=== PATIENT | female | born 1980 | race Caucasian/White ===

== ENCOUNTER 2023-10-15 10:44 | Emergency (ER) | payer MEDICAID, SELFPAY ==
--- NOTE | ~2023-10-15 | CT_ITS ---
EXAMINATION: CT HEAD WITHOUT CONTRAST CLINICAL INFORMATION: Headache. COMPARISON: None available. TECHNIQUE: Contiguous axial imaging was performed from the skull base to vertex without intravenous administration of contrast. This CT examination was performed using dose optimization techniques as appropriate, variously including the following: *Automated exposure control *Adjustment of mA and/or kV according to patient size (this includes techniques or standardized protocols for targeted exams where dose is matched to indication/reason for exam; i.e. extremities or head) *Use of iterative reconstruction technique DLP: 642 mGy-cm FINDINGS: There is no evidence of acute intracranial hemorrhage or territorial infarction. No mass effect or midline shift is seen. Encarnacion to white matter differentiation is preserved. No extra-axial fluid collections are identified. No hydrocephalus. The osseous structures and soft tissues are intact. The mastoid air cells are clear. Mucous retention cysts in the right maxillary sinus. CT/CT head/brain wo IV con IMPRESSION: No acute intracranial pathology.
[2023-10-15 10:59] VITALS: BP 157/111; PULSE 76; RESP 18; TEMP 36.6; O2SAT 98; BMI 26.0
--- NOTE | 2023-10-15 11:04 | ECG_ITS ---
Test Reason : chest discomfort Blood Pressure : / mmHG Vent. Rate : 070 BPM Atrial Rate : 070 BPM P-R Int : 162 ms QRS Dur : 072 ms QT Int : 424 ms P-R-T Axes : 060 041 003 degrees QTc Int : 457 ms Normal sinus rhythm Normal ECG No previous ECGs available Referred By: Generic ED Physician Electronically Signed By:TREVER SPENCER MD
[2023-10-15 11:28] LABS: MANUAL DIFF FLAG NO
[2023-10-15 11:29] LABS: Basophils Absolute Auto 0.1 X10*3/uL (0.0-0.2); Basophils Percent Auto 1.4 % (0-2); Eosinophils Absolute Auto 0.3 X10*3/uL (0.0-0.4); Eosinophils Percent Auto 3.9 % (0-4); Hematocrit 45.7 % (37.0-47.0); Hemoglobin 15.4 g/dl (12.0-16.0); Imm Gran Abs Auto 0.01 X10*3/uL (0.00-0.03); Imm Gran Pct Auto 0.2 % (0.0-0.4); Lymphocytes Absolute Auto 1.9 X10*3/uL (1.2-4.9); Lymphocytes Percent Auto 30.5 % (20-40); Mean Corpuscular HGB Conc 33.7 g/dl (31.0-35.0); Mean Corpuscular Hemoglobin 30.3 pg (27.0-33.0); Mean Corpuscular Volume 89.8 fL (80.0-98.0); Mean Platelet Volume 10.7 fL (9.4-12.3); Monocytes Absolute Auto 0.5 X10*3/uL (0.1-1.2); Monocytes Percent Auto 8.5 % (2-11); Neutrophils Absolute Auto 3.5 x10*3/uL (2.0-8.3); Neutrophils Percent Auto 55.5 % (45-73); Platelet Count 294 X10*3/uL (160-400); Red Blood Count 5.09 X10*6/uL (4.20-5.50); Red Cell Distribution Width 13.8 % (11.0-16.0); White Blood Count 6.4 X10*3/uL (4.8-10.8)
[2023-10-15 11:54] LABS: Alanine Aminotransferase 16 U/L (0-31); Albumin Level 4.3 g/dL (3.5-5.0); Alkaline Phosphatase 67 U/L (39-117); Anion Gap 10 (12-20); Aspartate Amino Transferase 14 U/L (5-31); Bilirubin Total 0.4 mg/dL (0.0-1.0); Blood Urea Nitrogen 11 mg/dL (9-16); Calcium 9.3 mg/dL (8.4-10.2); Carbon Dioxide 27 mmol/L (22-29); Chloride 105 mmol/L (96-108); Creatinine Clr Calc Pharmacy 91.5; Estimated Glomerular Filt Rate > 60; Glucose Random 88 mg/dL (60-115); Magnesium 2.4 mg/dL (1.6-2.6); Potassium 3.7 mmol/L (3.3-5.1); Sodium 138 mmol/L (135-145); Total Protein 7.8 g/dL (6.5-8.0)
[2023-10-15 12:01] LABS: Troponin-I High Sensitivity < 2.7 ng/L (<3.5-17.0)
[2023-10-15 12:07] LABS: Acetaminophen LAB < 3 mcg/mL (<30); Salicylate < 5.0 mg/dL (15-30)
--- NOTE | 2023-10-15 15:25 | ED_ITS ---
HPI - Headache General Chief Complaint: Headache Stated Complaint: Migraine X 2 Days Neck Pain Time Seen by Provider: 10/15/23 18:16 Related Data Allergies Allergy/AdvReac Type Severity Reaction Status Date / Time No Known Allergies Allergy Verified 10/15/23 11:03 [facility] Social History Social History Advance Directives: No Advance Directives Information Provided: No Do you have a plan to hurt others: No Plan Physical Exam 2 Vital Signs: Vital Signs: Last Vital Signs Temp 98.0 F 10/15/23 15:26 Pulse 69 10/15/23 15:26 Resp 18 10/15/23 15:26 BP 167/109 H 10/15/23 15:26 Pulse Ox 100 10/15/23 15:26 O2 Del Method Room Air 10/15/23 15:26 BMI result Body Mass Index 26.0 Course Course Course Narrative: This is an RME: Additional HPI, ROS, PE not included below will be deferred to primary provider. 43-year-old female presents with 2 days of headache, taking Excedrin 1 pill every 3-4 hours, she headache is intermittent, comes back, intermittent nature. Patient reports 2 weeks ago she was having sinus type symptoms now she reports she just feels mucusy . Took her moms amlodipine. Patient is hypertensive in triage. Medical Decision Making Lab Data 10/15/23 11:21 10/15/23 11:21 Labs: Lab Results 10/15/23 Range/Units 11:21 WBC 6.4 (4.8-10.8) X10*3/uL RBC 5.09 (4.20-5.50) X10*6/uL Hgb 15.4 (12.0-16.0) g/dl Hct 45.7 (37.0-47.0) % MCV 89.8 (80.0-98.0) fL MCH 30.3 (27.0-33.0) pg MCHC 33.7 (31.0-35.0) g/dl RDW 13.8 (11.0-16.0) % Plt Count 294 (160-400) X10*3/uL MPV 10.7 (9.4-12.3) fL Immature Gran % (Auto) 0.2 (0.0-0.4) % Neut % (Auto) 55.5 (45-73) % Lymph % (Auto) 30.5 (20-40) % [place] % (Auto) 8.5 (2-11) % Eos % (Auto) 3.9 (0-4) % Baso % (Auto) 1.4 (0-2) % Lymph # (Auto) 1.9 (1.2-4.9) X10*3/uL [place] # (Auto) 0.5 (0.1-1.2) X10*3/uL Eos # (Auto) 0.3 (0.0-0.4) X10*3/uL Baso # (Auto) 0.1 (0.0-0.2) X10*3/uL Abs Immat Gran (auto) 0.01 (0.00-0.03) X10*3/uL Absolute Neuts (auto) 3.5 (2.0-8.3) x10*3/uL Absolute Nucleated RBC 0.000 (0.0-0.012) X10*3/uL Nucleated RBC % (auto) 0.0 (0.0-0.2) /100WBC ESR 3 (0-20) MM/HR Sodium 138 (135-145) mmol/L Potassium 3.7 (3.3-5.1) mmol/L Chloride 105 (96-108) mmol/L Carbon Dioxide 27 (22-29) mmol/L Anion Gap 10 L (12-20) BUN 11 (9-16) mg/dL Creatinine 0.85 (0.5-1.4) mg/dL Estim Creat Clear Calc 91.5 Estimated GFR > 60 Random Glucose 88 (60-115) mg/dL Calcium 9.3 (8.4-10.2) mg/dL Magnesium 2.4 (1.6-2.6) mg/dL Total Bilirubin 0.4 (0.0-1.0) mg/dL AST 14 (5-31) U/L ALT 16 (0-31) U/L Alkaline Phosphatase 67 (39-117) U/L Troponin I High Sens < 2.7 (<3.5-17.0) ng/L C-Reactive Protein 0.20 (< or = 0.50) mg/dL Total Protein 7.8 (6.5-8.0) g/dL Albumin 4.3 (3.5-5.0) g/dL Salicylates < 5.0 L (15-30) mg/dL Acetaminophen < 3 (<30) mcg/mL Discharge Plan Discharge Clinical Impression: Eloped from emergency department Patient Disposition: Left W/O Completing Treatment Discharge Date/Time: 10/15/23 18:53
[2023-10-15 15:26] VITALS: BP 167/109; PULSE 69; RESP 18; TEMP 36.7; O2SAT 100
[2023-10-15 16:24] LABS: Erythrocyte Sedimentation Rate 3 MM/HR (0-20)
== END 2023-10-15 18:53 | disposition left against medical advice (07) ==
LOC: HO.ED 18:52
PROVIDERS: Physician Assistant; Physician Assistant Medical; Emergency Provider Emergency Medicine; PCP Internal Medicine
DX: G43.909 Migraine, unspecified, not intractable, without status migrainosus (principal); M54.2 Cervicalgia
CPT/HCPCS: 36415; 70450; 80053; 80143; 80179; 83735; 84484; 85025; 85652; 86140; 93005; 99283; 99284

== ENCOUNTER → 2023-10-15 11:04 | Outpatient (BNV) | payer MEDICAID, SELFPAY | PROVIDERS: Emergency Provider Emergency Medicine; PCP Internal Medicine; Visit Provider Internal Medicine Cardiovascular Disease | DX: R07.9 Chest pain, unspecified (principal) | CPT/HCPCS: 93010 ==

== ENCOUNTER 2025-05-17 10:28 | Inpatient (IN) | payer OTHER, SELFPAY ==
[2025-05-17] VITALS (11 sets, daily range): BP systolic 130–183; BP diastolic 82–113; PULSE 16–82; RESP 16; TEMP 36.3–36.8; O2SAT 95–99; BMI 24.3
--- NOTE | ~2025-05-17 | CT_ITS ---
EXAMINATION: CT ANGIOGRAM HEAD AND NECK CLINICAL INFORMATION: Headache, neck pain, left-sided facial numbness, 44-year-old female. COMPARISON: No prior CTA available. CT head dated 10/15/2023. TECHNIQUE: Noncontrast axial imaging of the head was performed. This was followed by test bolus sequences and head and neck intravenous bolus administration 70 mL of Omnipaque 350. Helical imaging was performed in the axial plane from the aortic arch to the skull vertex. The data was processed at the aeronautical engineering technologist's workstation for generation of MIP sequences. Angled MIPs and volume rendered reformatted images were also generated at an offline 3D workstation. Stenoses are assessed in accordance with NASCET criteria unless otherwise indicated. This CT examination was performed using dose optimization techniques as appropriate, variously including the following: *Automated exposure control *Adjustment of mA and/or kV according to patient size (this includes techniques or standardized protocols for targeted exams where dose is matched to indication/reason for exam; i.e. extremities or head) *Use of iterative reconstruction technique FINDINGS: NONCONTRAST HEAD CT: There is no evidence of intracranial hemorrhage or extra-axial fluid collection. There is no mass effect, or edema. No CT evidence of acute territorial infarct. Ventricles, sulci, and cisterns are normal in size and configuration for patient age. No hydrocephalus. No midline shift. No significant white matter abnormalities. Normal-appearing pituitary. Globes and orbital contents image normally. No extracranial soft tissue abnormalities. The paranasal sinuses, mastoid air cells, and tympanic cavities are normally aerated. No suspicious bony abnormalities. NECK CTA: -AORTIC ARCH: Normal in caliber. No significant atheromatous calcification. Three-vessel branching pattern. -GREAT VESSEL ORIGINS: Widely patent. No stenosis. -RIGHT COMMON CAROTID ARTERY: Normal in course and caliber to the level of the bifurcation. -CERVICAL RIGHT INTERNAL CAROTID ARTERY: Normal opacification without focal stenosis or occlusion. -LEFT COMMON CAROTID ARTERY: Normal in course and caliber to the level of the bifurcation. -CERVICAL LEFT INTERNAL CAROTID ARTERY: Normal opacification without focal stenosis or occlusion. -CERVICAL RIGHT VERTEBRAL ARTERY: Codominant. Normal origin. Normal in course and caliber into the skull base. -CERVICAL LEFT VERTEBRAL ARTERY: Codominant. Normal origin. Normal in course and caliber into the skull base. OTHER, SOFT TISSUES: -No lymphadenopathy or mass. No abnormal fluid collection or soft tissue swelling. -Normal thyroid. -Imaged superior mediastinal structures normal. -Imaged lung apices clear. CTA OF THE BRAIN: -INTRACRANIAL INTERNAL CAROTID ARTERIES: No focal stenosis or occlusion. Ophthalmic artery origins are normal. -RIGHT ANTERIOR CEREBRAL ARTERY: Normal A1 segment. Normal arborization of the distal segments. -LEFT ANTERIOR CEREBRAL ARTERY: Normal A1 segment. Normal arborization of the distal segments. -ANTERIOR COMMUNICATING ARTERY: Normal. -RIGHT MIDDLE CEREBRAL ARTERY: Normal M1 segment of the MCA without focal stenosis or occlusion. Normal bifurcation. Normal arborization of the distal segments. -LEFT MIDDLE CEREBRAL ARTERY: Normal M1 segment of the MCA without focal stenosis or occlusion. Normal bifurcation. Normal arborization of the distal segments. -RIGHT VERTEBRAL ARTERY V4: Normal in course and caliber. There is a right AICA/PICA. -LEFT VERTEBRAL ARTERY V4: Normal in course and caliber. Normal PICA branch. -BASILAR ARTERY: Normal without focal stenosis or occlusion. Normal appearance of the proximal superior cerebellar arteries. Normal basilar tip. -RIGHT POSTERIOR CEREBRAL ARTERY: Normal. Normal opacification of the distal [address] [place] segments. -LEFT POSTERIOR CEREBRAL ARTERY: Normal. Normal opacification of the distal [address] [place] segments. -POSTERIOR COMMUNICATING ARTERIES: Very diminutive although patent bilaterally. Normal opacification of the superior sagittal, straight, transverse, and sigmoid sinuses. No venous thrombosis. CT/CT angio head neck IMPRESSION: NON-CONTRAST HEAD CT: 1. No intracranial hemorrhage or mass effect. No CT evidence of acute territorial infarct. CTA NECK: 1. No evidence of significant stenosis, occlusion, dissection, or aneurysm of the major cervical arterial vasculature. CTA HEAD: 1. No evidence of significant stenosis, occlusion, dissection, or aneurysm of the major intracranial arterial vasculature. 2. Major cortical and dural venous sinuses are patent. Electronically signed by: Thong Sherwood MD 05/17/2025 12:19 PM EST
--- NOTE | ~2025-05-17 | XR_ITS ---
EXAMINATION: XR CHEST 2 VIEWS HISTORY: chest pressure COMPARISON: There are no prior studies available for comparison. FINDINGS: PA and lateral views of the chest are submitted. The lungs are expanded and clear. There is no pleural effusion, pneumothorax, or pulmonary vascular congestion. The heart is normal in size. The bones are intact. XR/XR chest 2V IMPRESSION: Clear lungs. Electronically signed by: Justus Potter MD 05/17/2025 10:55 AM [place]
--- NOTE | 2025-05-17 10:31 | ED_ITS ---
HPI - General Adult General Chief complaint: General Medical Stated complaint: high BP, facial numbness, headache Time Seen by Provider: 05/17/25 10:35 Source: patient and old records reviewed Mode of arrival: ambulatory Limitations: no limitations History of Present Illness ED Provider: SAAD ALEXANDRE narrative: 44-year-old female with past medical history of stress-induced anxiety from work force, hypertension or elevated blood pressure readings for the last year who is not in any medications. She states she has noted elevated blood pressures for the past few days with diastolics greater than 100 and systolics ranging 170s to 180s. She also reports initially feeling and occipital headache in the past, she has no preceding aura, she relates that she suffers from possibly tension headaches due to her job. Late yesterday she started to notice some feeling of like lidocaine in the area of her left lower jaw. She has no other neuro deficits such as vision problems, weakness of extremities, numbness anywhere else. She did become nervous and self-treated yesterday with 40 mg lisinopril that was her father's as well as taking a dose this morning. She denies any recent head trauma, neck manipulation, nausea vomiting. She takes Ashwaghandafor anxiety at home which is a supplement. She denies any caffeine intake, uure-hmg-liherac cough or cold medicine. She has never had a history of ocular migraines or any issues such as numbness in the past. She is not on any medications at home at baseline. She was told about a year ago while in the emergency department her blood pressure was high. MD complaint: Elevated blood pressure, jaw numbness Onset (ago): day(s) (Elevated blood pressure for the past few days, jaw numbness weight yesterday afternoon) Location: face Radiation: non-radiation Severity: mild Quality: dull and constant Pain Consistency: constant Relieving factors: none Exacerbating factors: none Associated symptoms: denies other symptoms Treatments prior to arrival: none Related Data Allergies Allergy/AdvReac Type Severity Reaction Status Date / Time No Known Allergies Allergy Verified 05/17/25 10:34 Review of Systems 2 Review of Systems: Constitutional : No Fever, No Chills, No Fatigue ENT/Mouth : No sore throat, No Rhinorrhea Eyes: No Eye Pain, No Swelling, No Redness Cardiovascular : No Chest Pain, No SOB, No Dyspnea on Exertion Respiratory : No Cough, No Sputum Gastrointestinal : No Nausea, No Vomiting, No Diarrhea, No abdominal Pain Genitourinary : No Dysuria, No Urinary Frequency, No Hematuria, Musculoskeletal : No joint pain, No Myalgias, No Joint Swelling Skin : No Skin Lesions, No rash Neuro : No Weakness, pos Numbness, No Dizziness, positive Headache All other systems reviewed and are negative [facility] Past Medical History Attestation statement: The following information was validated with the patient. Medical History (Updated 05/17/25 @ 14:59 by Rukhsana Crawford DO) Elevated blood pressure reading Tension headache Social History Social History (Updated 05/17/25 @ 11:13 by Rukhsana Crawford DO) Patient Tobacco Use Status: Never used Tobacco Advance Directives: No Advance Directives Information Provided: Yes Do you have a plan to hurt others: No Plan Patient : No Physical Exam ED Vital Signs: Vital Signs - 24 hr 05/17/25 10:31 05/17/25 12:08 05/17/25 13:05 Temperature 97.4 F 98.2 F Pulse Rate 70 16 L 67 Respiratory Rate 16 16 Blood Pressure 172/100 H 172/97 H 176/113 H Pulse Oximetry 99 99 Oxygen Delivery Method Room Air 05/17/25 13:19 05/17/25 13:37 05/17/25 14:47 Temperature Pulse Rate 70 67 Respiratory Rate 16 16 Blood Pressure 180/111 H 183/109 H 175/19 H Pulse Oximetry 97 Oxygen Delivery Method Room Air BMI result Body Mass Index 24.3 Appearance: Alert. Oriented X3. No acute distress. Eyes: Pupils equal, round and reactive to light. ENT: Pharynx normal. Neck: Normal inspection. Neck supple. CVS: Normal heart rate and rhythm. Pulses normal. Respiratory: No respiratory distress. Breath sounds normal. Abdomen: Soft and nontender. Skin: Skin warm and dry. Normal skin color. Normal skin turgor. Extremities: No lower extremity edema. No calf ttp Neuro: Oriented X 3. No motor deficit. No sensory deficit. CN2-12 intact sensation is intact to light touch on the face NIH Stroke Scale Internal: Initial- Upon Arrival Level of Consciousness: Alert Level of Consciousness Questions: Answers both questions correctly Level of Consciousness Commands: Performs both tasks correctly Best Gaze: Normal Visual: No visual loss Facial Palsy: Normal Motor Arm (Right): No drift Motor Arm (Left): No drift Motor Leg (Right): No drift Motor Leg (Left): No drift Limb Ataxia: Absent Sensory: Normal Best Language: No aphasia Dysarthia: Normal Extinction and Inattention: No abnormality Score: 0 Course Course Course Narrative: This is a rapid medical exam performed by Lisa Brandt NP: Additional HPI, ROS, PE not included below will be deferred to primary provider. Patient is a 44-year-old female presenting with complaint of left lower jaw numbness, chest pressure, and elevated blood pressures. BPs elevated x 2 days, other symptoms began yesterday morning. States was checking BPs due to headache. BP in triage 172/100. Plan: EKG, labs, CXR Reevaluation(s) Reevaluation #1: 1:07 PM 05/17/2025 (SAAD HENDRICKSON): At this time no response to benzodiazepine, will give very low-dose amlodipine and recheck I am very hesitant to give her any strong blood pressure control given her recent 40 mg lisinopril doses at home without any prior administration of blood pressure medicines in the past Medications Administered Discontinued Medications Generic Name Dose Route Start Last Admin Trade Name Freq PRN Reason Stop Dose Admin Amlodipine Besylate 2.5 mg 05/17/25 13:06 05/17/25 13:19 Amlodipine Besylate 2.5 Mg Tablet PO 05/17/25 13:07 2.5 mg ONCE ONE Administration Protocol Diazepam 2.5 mg 05/17/25 12:13 05/17/25 12:25 Diazepam 10 Mg/2 Ml Cartridge IVPUSH 05/17/25 12:14 2.5 mg STAT STA Administration Lactated Ringer's 1,000 mls @ 999 mls/hr 05/17/25 11:17 05/17/25 13:19 Lr IV 05/17/25 12:17 Infused .Q1H1M ONE Infusion Iohexol 100 ml 05/17/25 11:29 05/17/25 11:30 Iohexol 350 Mg/Ml 100 Ml Infus..Btl IV 05/17/25 11:30 70 ml ONCE ONE Administration Lorazepam 1 mg 05/17/25 10:58 05/17/25 11:10 Lorazepam 1 Mg Tablet PO 05/17/25 10:59 1 mg ONCE ONE Administration Morphine Sulfate 4 mg 05/17/25 13:22 05/17/25 13:36 Morphine Sulfate 4 Mg/Ml Cartridge IVPUSH 05/17/25 13:23 4 mg ONCE ONE Administration Protocol Ondansetron HCl 4 mg 05/17/25 13:22 05/17/25 13:34 Ondansetron Hcl 4 Mg/2 Ml Vial IVPUSH 05/17/25 13:23 4 mg ONCE ONE Administration Medical Decision Making Medical Decision Making MDM Narrative: 44-year-old female with past medical history of stress-induced anxiety from work force, hypertension or elevated blood pressure readings for the last year who has not on any medications presents with elevated blood pressure at home for the past few days with diastolic greater than 100 and systolic greater than 180s. She also reports mild occipital headache as well as left-sided facial numbness she did try to self treat with lisinopril 40 mg for the past 2 days. She still has the headache and left-sided jaw numbness but it is not present on exam. Her NIH is 0. At this time given blood pressure and symptoms I am going to obtain basic labs, CTA to look for any atherosclerotic disease as well as dissection, I am going to initially treat with anxiety via p.o. Ativan. Patient is agreeable to this She normally ashwagandha supplement for her anxiety some side effects that include liver disease, thyroid dysfunction, headaches Differential Diagnosis Differential Diagnoses: The differential diagnosis associated with the presentation includes Uncontrolled hypertension, chronic hypertension, KAY, dissection, migraine, anxiety Admission/Observation Consideration of admission/observation: Escalation of care including admission/observation considered At this time she had headache, facial numbness, she has not really had good response for her pain. I do not think that was the cause of her headache. She has taken 80 mg of lisinopril in the last 24 hours. She had no response to p.o. amlodipine, I am slightly concerned about dosing with IV labetalol that I might drop her precipitously since I am not sure if the full effect of lisinopril is in our system I am asked in the hospitalist to admit to for hypertensive emergency and monitoring of blood pressure Consult Healthcare Provider Management of the patient was discussed with: Hospitalist (Will admit) Lab Data [facility] Lab Attestation statement: I reviewed the patient's lab results. 05/17/25 10:46 05/17/25 10:46 Labs: Lab Results 05/17/25 Range/Units 10:46 WBC 7.3 (4.8-10.8) X10*3/uL RBC 4.48 (4.20-5.50) X10*6/uL Hgb 13.6 (12.0-16.0) g/dl Hct 41.1 (37.0-47.0) % MCV 91.7 (80.0-98.0) fL MCH 30.4 (27.0-33.0) pg MCHC 33.1 (31.0-35.0) g/dl RDW 14.5 (11.0-16.0) % Plt Count 257 (160-400) X10*3/uL MPV 10.7 (9.4-12.3) fL Immature Gran % (Auto) 0.3 (0.0-0.4) % Neut % (Auto) 61.6 (45-73) % Lymph % (Auto) 22.6 (20-40) % [place] % (Auto) 8.2 (2-11) % Eos % (Auto) 5.5 H (0-4) % Baso % (Auto) 1.8 (0-2) % Lymph # (Auto) 1.7 (1.2-4.9) X10*3/uL [place] # (Auto) 0.6 (0.1-1.2) X10*3/uL Eos # (Auto) 0.4 (0.0-0.4) X10*3/uL Baso # (Auto) 0.1 (0.0-0.2) X10*3/uL Abs Immat Gran (auto) 0.02 (0.00-0.03) X10*3/uL Absolute Neuts (auto) 4.5 (2.0-8.3) x10*3/uL Absolute Nucleated RBC 0.000 (0.0-0.012) X10*3/uL Nucleated RBC % (auto) 0.0 (0.0-0.2) /100WBC Sodium 139 (135-145) mmol/L Potassium 3.8 (3.3-5.1) mmol/L Chloride 106 (96-108) mmol/L Carbon Dioxide 28 (22-29) mmol/L Anion Gap 9 L (12-20) BUN 12 (9-16) mg/dL Creatinine 0.91 (0.5-1.4) mg/dL Estim Creat Clear Calc 77.9 Estimated GFR > 60 Random Glucose 83 (60-115) mg/dL Calcium 8.8 (8.4-10.2) mg/dL Magnesium 1.9 (1.6-2.6) mg/dL Total Bilirubin 0.5 (0.0-1.0) mg/dL AST 16 (5-31) U/L ALT 17 (0-31) U/L Alkaline Phosphatase 58 (39-117) U/L Troponin I High Sens < 2.7 (<3.5-17.0) ng/L Total Protein 6.9 (6.5-8.0) g/dL Albumin 4.2 (3.5-5.0) g/dL TSH 1.44 (0.32-4.0) uIU/mL Beta HCG, Quant < 2 mIU/mL Independent Interpretation I performed an independent interpretation of an: EKG, Plain X-Ray (Normal) and CT Scan (No acute) Interpretation: Rate: 68 Rhythm: Normal sinus rhythm [place]: Normal Normal P waves. Normal MISA. Normal QRS complex. ST T wave : Inverted T-wave in V1 and lead 3, but no ST-elevation or other concerning findings qTC: 452 prior studies: No change from September of 2023 The study has been interpreted contemporaneously by me. . Radiology Impression Discussion of test interpretation with radiology: I have reviewed the radiologist's reading. Discharge Plan Discharge Clinical Impression: Acute tension headache, Paresthesia, Hypertensive emergency Patient Disposition: Admitted As Inpatient Additional Instructions: Your electrocardiogram, electrolytes and kidney function, your blood cell counts are all normal Your CT scan which included the vasculature of the head of the neck shows no signs of acute pathology your vessels are patent CT/CT angio head neck IMPRESSION: NON-CONTRAST HEAD CT: 1. No intracranial hemorrhage or mass effect. No CT evidence of acute territorial infarct. CTA NECK: 1. No evidence of significant stenosis, occlusion, dissection, or aneurysm of the major cervical arterial vasculature. CTA HEAD: 1. No evidence of significant stenosis, occlusion, dissection, or aneurysm of the major intracranial arterial vasculature. 2. Major cortical and dural venous sinuses are patent. Print Language: Pashto
--- NOTE | 2025-05-17 10:32 | ECG_ITS ---
Test Reason : facial tingling/chest pressre Blood Pressure : */* mmHG Vent. Rate : 68 BPM Atrial Rate : 68 BPM P-R Int : 152 ms QRS Dur : 76 ms QT Int : 426 ms P-R-T Axes : 36 23 -17 degrees QTcB Int : 452 ms Normal sinus rhythm Normal ECG When compared with ECG of 15-Oct-2023 11:12, No significant change was found Referred By: Grace Brandt Electronically Signed By: Evgeny Sharpe
[2025-05-17 10:51] LABS: MANUAL DIFF FLAG NO
[2025-05-17 10:52] LABS: Hematocrit 41.1 % (37.0-47.0); Hemoglobin 13.6 g/dl (12.0-16.0); Imm Gran Abs Auto 0.02 X10*3/uL (0.00-0.03); Imm Gran Pct Auto 0.3 % (0.0-0.4); Lymphocytes Absolute Auto 1.7 X10*3/uL (1.2-4.9); Mean Corpuscular HGB Conc 33.1 g/dl (31.0-35.0); Mean Corpuscular Hemoglobin 30.4 pg (27.0-33.0); Mean Corpuscular Volume 91.7 fL (80.0-98.0); NRBC Abs Auto 0.000 X10*3/uL (0.0-0.012); NRBC Pct Auto 0.0 /100WBC (0.0-0.2); Platelet Count 257 X10*3/uL (160-400); Red Blood Count 4.48 X10*6/uL (4.20-5.50); White Blood Count 7.3 X10*3/uL (4.8-10.8)
[2025-05-17 11:15] LABS: Alanine Aminotransferase 17 U/L (0-31); Albumin Level 4.2 g/dL (3.5-5.0); Alkaline Phosphatase 58 U/L (39-117); Anion Gap 9 (12-20); Aspartate Amino Transferase 16 U/L (5-31); Blood Urea Nitrogen 12 mg/dL (9-16); Calcium 8.8 mg/dL (8.4-10.2); Carbon Dioxide 28 mmol/L (22-29); Chloride 106 mmol/L (96-108); Creatinine Clr Calc Pharmacy 77.9; Estimated Glomerular Filt Rate > 60; Magnesium 1.9 mg/dL (1.6-2.6); Potassium 3.8 mmol/L (3.3-5.1); Sodium 139 mmol/L (135-145); Total Protein 6.9 g/dL (6.5-8.0)
[2025-05-17 11:17] LABS: Troponin-I High Sensitivity < 2.7 ng/L (<3.5-17.0)
[2025-05-17] MEDS: iohexoL 350 MG/ML 100 ML INFUS..BTL IV (11:30)
[2025-05-17] MEDS: Lactated Ringers 1,000 ML 999 ML IV (11:50)
[2025-05-17] MEDS: diazePAM 10 MG/2 ML CARTRIDGE 2.5 MG IVPUSH (12:25)
--- NOTE | 2025-05-17 15:15 | P.HPHOSP_ITS ---
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 In the past a year ago, she was told that she does have some hypotension, but 2 weeks ago when she checked she stated that her blood pressure was in the 120s and never had any issues. Patient also wonders if she is perimenopausal and has not noticed any other issues. She reports she only takes a herbal supplement-Ashwagandha for stress and did notice her blood pressure going up during stressful times. She also states that she does have issues sleeping at night and she wakes up in the morning. But otherwise denies any other medical conditions. She took lisinopril from her father 80 mg yesterday and it did not help. And she decided to seek care. Stroke workup-head CT, head CTA and neck negative Patient neurologically intact no issues In the ED, she received amlodipine 2.5 mg, 1 mg Ativan, morphine 4 mg IVP once, ondansetron. ED was concern had to put her out with IV medications and send her home and hence she is being discharged for hypotensive emergency Review of Systems 2 Review of Systems: Yes all other systems are reviewed and are negative [facility] Medical History (Updated 05/17/25 @ 14:59 by Rukhsana Crawford DO) Elevated blood pressure reading Tension headache Social History (Updated 05/17/25 @ 11:13 by Rukhsana Crawford DO) Patient Tobacco Use Status: Never used Tobacco Advance Directives: No Advance Directives Information Provided: Yes Do you have a plan to hurt others: No Plan Patient : No Meds Allergies Allergy/AdvReac Type Severity Reaction Status Date / Time No Known Allergies Allergy Verified 05/17/25 10:34 Home Medications ?Medication ?Instructions ?Recorded ?Confirmed ?Last Taken ?Type ashwagandha extract 500 mg capsule 500 mg PO DAILY 05/17/25 05/17/25 History ysysqgg-anhckvbmkozet-ojdkmabn 250 1 tab PO Q4H PRN Mi graine Headache 05/17/25 05/17/25 Unknown History mg-250 mg-65 mg tablet (Excedrin Migraine) omega 8-swz-skm-fish oil 1,000 mg 1 cap PO DAILY 05/1705/17/25 05/17/25 History (120 mg-180 mg) capsule (Fish Oil) Physical Exam 2 Vital Signs and Narrative: Vital Signs: Last Vital Signs Temp 98.2 F 05/17/25 12:08 Pulse 67 05/17/25 14:47 Resp 16 05/17/25 14:47 BP 175/109 H 05/17/25 14:47 Pulse Ox 97 05/17/25 13:37 O2 Del Method Room Air 05/17/25 13:37 BMI result Body Mass Index 24.3 General: AOx3, no acute distress, mild bilateral eye flushing Resp: CTA bilaterally CVS: S1, S2, RRR GI: +BS, NT, no distention Skin: Warm, dry Neuro: Cranial nerves II-XII grossly intact bilaterally. Motor grossly intact bilaterally Psych: Appropriate affect Results Labs 05/17/25 10:46 05/17/25 10:46 Labs: Laboratory Results - last 24 hr 05/17/25 10:46 MCV 91.7 MCH 30.4 MCHC 33.1 RDW 14.5 Plt Count 257 MPV 10.7 Immature Gran % (Auto) 0.3 Neut % (Auto) 61.6 Lymph % (Auto) 22.6 [place] % (Auto) 8.2 Eos % (Auto) 5.5 H Baso % (Auto) 1.8 Lymph # (Auto) 1.7 [place] # (Auto) 0.6 Eos # (Auto) 0.4 Baso # (Auto) 0.1 Abs Immat Gran (auto) 0.02 Absolute Neuts (auto) 4.5 Absolute Nucleated RBC 0.000 Nucleated RBC % (auto) 0.0 Anion Gap 9 L Estim Creat Clear Calc 77.9 Estimated GFR > 60 Random Glucose 83 Calcium 8.8 Magnesium 1.9 Total Bilirubin 0.5 AST 16 ALT 17 Alkaline Phosphatase 58 Troponin I High Sens < 2.7 Total Protein 6.9 Albumin 4.2 TSH 1.44 Beta HCG, Quant < 2 Imaging Radiologist's Impressions: Impressions Chest X-Ray 05/17/25 10:50 IMPRESSION: Clear lungs. Electronically signed by: Justus Potter MD 05/17/2025 10:55 AM EST RP Head/Neck CTA 05/17/25 11:29 IMPRESSION: NON-CONTRAST HEAD CT: 1. No intracranial hemorrhage or mass effect. No CT evidence of acute territorial infarct. CTA NECK: 1. No evidence of significant stenosis, occlusion, dissection, or aneurysm of the major cervical arterial vasculature. CTA HEAD: 1. No evidence of significant stenosis, occlusion, dissection, or aneurysm of the major intracranial arterial vasculature. 2. Major cortical and dural venous sinuses are patent. Electronically signed by: Thong Sherwood MD 05/17/2025 12:19 PM EST RP Assessment and Plan (1) Hypertensive emergency: Status: Acute Patient is a 44-year-old possible perimenopausal female, a [employer] Employee who presented with significantly elevated blood pressure with neurological symptoms- headache and numbness. Patient being admitted for optimal management and further workup Newly diagnosed Hypertensive emergency Possibly untreated We will start her on amlodipine 10 mg daily, losartan 50 mg daily We will treat her with hydralazine 5 IVP q.6 p.r.n. We will titrate to goal TTE ? Undiagnosed cardiomyopathy ? Hypotensive cardiomyopathy Trop negative, EKG unremarkable, we will check for pheochromocytoma - serum metanephrines Check U tox BAL , denies smoking Low-sodium diet Seizure precautions fall preacutions Stress - patient would defer SSRI for now Sleep disturbances - Melatonin prn Full code DVT prophylaxis with Lovenox while inpatient This note is constructed using voice recognition software. While every effort has been made to ensure accuracy, shovel engineer errors may have been included. Quality Stroke Does the patient have a stroke diagnosis?: No VTE Prior VTE?: No VTE Risk Level:: Medical - moderate - high VTE Device Contraindication: N/A - Device Ordered VTE Drug Contraindication: N/A - Med Ordered
--- NOTE | 2025-05-17 15:49 | PHA.MEDREC ---
Addendum entered by Calvin German [facility] 05/17/25 16:04: med rec reviewed Original Note: Pharmacy Consult ? Medication Reconciliation Pharmacy has completed the medication reconciliation. Spoke with pt and she confirmed she is taking Excedrin as needed for migraine/pain, she takes Ashwaghanda 500mg caps once daily, Fish oil 1000mg cap once daily, Coenzym COQ10 once daily (pt not sure on dose), and Beet Root caps (unsure on dose) once daily and took them this morning. Pt confirmed she took 1 tablet of her fathers Lisinopril 40mg but does not regularly take those or any Dr prescription medication.
[2025-05-17 16:04] LABS: Troponin-I High Sensitivity < 2.7 ng/L (<3.5-17.0)
--- NOTE | 2025-05-17 16:26 | HO.NURTONUR ---
44 yr female admitted for hypertensive crisis. Pt comes to ED for c/o SIEGEL and L lower jaw numbness. She reports HTN and took her fathers Lisinopril at home with no relief. She states she has a stressful job and often has a SIEGEL however the L lower jaw numbness was concerning. A&Ox3, afebrile Elevated BP noted. Pt given IVF, Ativan, Valium, Norvasc in ED with limited affects on BP and SIEGEL. CT imaging completed--no significant findings. 20g RAC Independent ambulation.
[2025-05-17 17:16] LABS: NT Pro B Type Natriuretic Pept 151.2 pg/mL (<300)
[2025-05-18 01:56] VITALS: BP 142/92; PULSE 72; RESP 18; TEMP 36.5; O2SAT 96
[2025-05-18 03:57] VITALS: BP 137/84; PULSE 75; RESP 18; TEMP 36.6; O2SAT 95
[2025-05-18 06:00] VITALS: BMI 26.8
[2025-05-18 06:22] LABS: MANUAL DIFF FLAG NO
[2025-05-18 06:27] LABS: Hematocrit 43.1 % (37.0-47.0); Hemoglobin 14.3 g/dl (12.0-16.0); Imm Gran Abs Auto 0.02 X10*3/uL (0.00-0.03); Imm Gran Pct Auto 0.2 % (0.0-0.4); Lymphocytes Absolute Auto 2.1 X10*3/uL (1.2-4.9); Mean Corpuscular HGB Conc 33.2 g/dl (31.0-35.0); Mean Corpuscular Hemoglobin 30.1 pg (27.0-33.0); Mean Corpuscular Volume 90.7 fL (80.0-98.0); NRBC Abs Auto 0.000 X10*3/uL (0.0-0.012); NRBC Pct Auto 0.0 /100WBC (0.0-0.2); Platelet Count 273 X10*3/uL (160-400); Red Blood Count 4.75 X10*6/uL (4.20-5.50); White Blood Count 8.1 X10*3/uL (4.8-10.8)
[2025-05-18 06:36] LABS: Alanine Aminotransferase 16 U/L (0-31); Albumin Level 4.3 g/dL (3.5-5.0); Alkaline Phosphatase 59 U/L (39-117); Anion Gap 11 (12-20); Aspartate Amino Transferase 15 U/L (5-31); Blood Urea Nitrogen 12 mg/dL (9-16); Calcium 9.0 mg/dL (8.4-10.2); Carbon Dioxide 26 mmol/L (22-29); Chloride 106 mmol/L (96-108); Creatinine Clr Calc Pharmacy 87.6; Estimated Glomerular Filt Rate > 60; Magnesium 2.1 mg/dL (1.6-2.6); Potassium 3.8 mmol/L (3.3-5.1); Sodium 139 mmol/L (135-145); Total Protein 7.0 g/dL (6.5-8.0)
--- NOTE | 2025-05-18 07:00 | CA_ITS ---
Transthoracic Echocardiogram Patient (Last, First, Middle): Heidi Phelps L Gender: Female Date of : 1980 Age: 44 Procedure Date: 05/18/2025 Procedure Type: Transthoracic Echocardiogram Location[place] [facility] [place] Height: 172.72 cm Weight: 79.83 kg BSA: 1.94 m2 Heart Rate: bpm BP: 140 / 85 mmHg Patient Assessment Coordinator: TO Referring MD: Enid Mccrary MD Symptoms: HTN emergency Study Quality: Adequate Conclusions: - Normal left ventricular size and systolic function. There is mildly increased left ventricular wall thickness. The visually estimated ejection fraction is between 55-60%. There is no evidence of regional wall motion abnormalities. Diastolic function is normal for age. - Normal right ventricular cavity size and systolic function. Findings Left Ventricle Normal left ventricular size and systolic function. There is mildly increased left ventricular wall thickness. The visually estimated ejection fraction is between 55-60%. There is no evidence of regional wall motion abnormalities. Diastolic function is normal for age. Right Ventricle Normal right ventricular cavity size and systolic function. Atria The left atrium is normal in size. The right atrium is normal in size. Aortic Valve Normal aortic valve structure and function. There is no aortic valve stenosis. There is no aortic valve regurgitation. Mitral Valve The mitral valve appears normal. There is trace mitral valve regurgitation. There is no mitral valve stenosis. Pulmonic Valve The pulmonic valve is normal. There is trace pulmonic valve regurgitation. Tricuspid Valve Normal tricuspid valve structure. There is trace tricuspid valve regurgitation. Normal right atrial pressure. There is no evidence of pulmonary hypertension. Great Vessels All visible segments of the aorta are normal in size. The visualized portions of the pulmonary artery and branches are normal. Venous The inferior vena cava is normal in size and collapses greater than 50% with inspiration. Pericardium/Pleural There is no evidence of pericardial effusion. Prior Study Comparison No prior study available for comparison. Measurements 2D Linear Measurements IVSd: 1.18 0.6-0.9/0.6-1.0 cm LVIDd: 4.90 3.9-5.3/4.2-5.9 cm LVIDd Index: 2.53 2.4-3.2/2.2-3.1 cm/m2 LVIDs: 3.03 2.0-3.6 cm LVPWd: 1.04 0.7-1.1 cm LA Diam: 3.50 2.7-3.8/3.0-4.0 cm LAIDs Index: 1.80 1.5-2.3 cm/m2 LV Mass: 253.03 67-162/88-224 g LV Mass Index: 130.43 43-95/49-115 g/m2 LVOT Diam: 2.20 3.0+(-)1.3 cm 2D Systolic Function EF 4C: 49.20 >55% EF 2C: 63.90 >55% EF BiP: 57.80 >55% Mitral Valve MV Pk E: 0.58 MV PK A: 0.48 MV Decel Time: 194.00 E/A: 1.20 E'Lateral: 7.72 E'Medial: 6.85 E/E' Med: 8.50 E/E' Lat: 7.60 PHT: 57.00 MVA PHT: 3.86 Decel [place]: 3.01 Aortic Valve AoV Pk Arturo: 1.51 AoV Mn Arturo: 1.01 AoV VTI: 0.28 AoV Pk Grad: 9.00 Aov Mn Grad: 5.00 JOSE MANUEL Cont.VTI: 2.93 LVOT LVOT Pk Arturo: 1.01 LVOT Mn Arturo: 0.73 LVOT VTI: 0.22 LVOT Pk Grad: 4.00 LVOT Mn Grad: 2.00 LVOT Diam: 2.20 LVOT Area: 3.80 Diastolic Function MV Pk E: 0.58 MV Pk A: 0.48 E/A: 1.20 E'Medial: 6.85 E/E' Med: 8.50 E' Laterial: 7.72 E/E' Lat: 7.60 Right Ventricle TAPSE (mm): 26.50 TVS' Arturo: 10.80 Tricuspid Valve TR Pk Arturo: 1.73 TR Pk Grad: 12.00 RA Press: 3.00 RVSP: 15.00 Great Vessels Aorta Sinus of Valsalva: 3.02 2.0-3.5 cm Ao Asc: 3.00 2.1-3.4 cm Updated in Other Vendor System with Status of Final Evgeny Sharpe MD electronically signed on 05/18/2025 2:48:27 PM with status of Final
[2025-05-18 07:15] VITALS: BP 140/85; PULSE 68; RESP 18; TEMP 36.7; O2SAT 96
--- NOTE | 2025-05-18 07:57 | P.PNIM_ITS ---
Subjective Subjective Date of Service: 05/18/25 Interval History: Blood pressure significantly better compared to presentation-with a SBP in the 144 Review of Systems Review of Systems: Yes all other systems are reviewed and are negative Physical Exam 2 Exam: Exam: General: AOx3, no acute distress, complained of frontal headache Resp: CTA bilaterally CVS: S1, S2, RRR GI: +BS, NT, no distention Skin: Warm, dry Neuro: Cranial nerves II-XII grossly intact bilaterally. Motor grossly intact bilaterally Psych: Appropriate affect Vital Signs: Vital Signs: Last Vital Signs Temp 98.1 F 05/18/25 07:15 Pulse 68 05/18/25 07:15 Resp 18 05/18/25 07:15 BP 140/85 H 05/18/25 07:15 Pulse Ox 96 05/18/25 07:15 O2 Del Method Room Air 05/18/25 07:15 BMI result Body Mass Index 26.8 Objective Data Active Medications Acetaminophen (Acetaminophen 325 Mg Tablet) 650 mg PO Q6H PRN PRN Reason: Pain, Mild 1-3,fever,headache Last Admin: 05/18/25 06:19 Dose: 650 mg Documented By: FREDY Albuterol/Ipratropium (Albuterol/Iprat 2.5/0.5mg 3 Ml Ampul.Neb) 3 ml INHALE Q4H PRN PRN Reason: Shortness of Breath/Wheezing Amlodipine Besylate (Amlodipine Besylate 10 Mg Tablet) 10 mg PO DAILY [facility]; Protocol Last Admin: 05/17/25 16:03 Dose: 10 mg Documented By: HAYLEE Benzonatate (Benzonatate 100 Mg Capsule) 100 mg PO TID PRN PRN Reason: Cough Calcium Carbonate (Calcium Carbonate 750 Mg Tab.Chew) 750 mg PO Q4H PRN PRN Reason: Heartburn Enoxaparin Sodium (Enoxaparin Sodium 40 Mg/0.4 Ml Syringe) 40 mg SUBCUT Q24H [facility] Last Admin: 05/17/25 18:04 Dose: Not Given Documented By: HAYLEE Non-Admin Reason: Patient Refused Furosemide (Furosemide 40 Mg Tablet) 40 mg PO BID@0900,1800 [facility]; Protocol Last Admin: 05/17/25 18:32 Dose: 40 mg Documented By: HAYLEE Hydralazine HCl (Hydralazine Hcl 20 Mg/Ml Vial) 5 mg IVPUSH Q6H PRN; Protocol PRN Reason: SBP > 160 Losartan Potassium (Losartan Potassium 50 Mg Tablet) 50 mg PO DAILY [facility]; Protocol Last Admin: 05/17/25 16:03 Dose: 50 mg Documented By: HAYLEE Magnesium Hydroxide (Milk Of Magnesia 30 Ml Oral.Susp) 30 ml PO DAILY PRN PRN Reason: Constipation Melatonin (Melatonin 3 Mg Tablet) 6 mg PO BEDTIME PRN PRN Reason: Insomnia Nitroglycerin (Nitroglycerin 0.4 Mg Tab.Subl) 0.4 mg SUBLINGUAL Q5MX3 PRN PRN Reason: Chest Pain Ondansetron HCl (Ondansetron Hcl 4 Mg/2 Ml Vial) 4 mg IVPUSH Q8H PRN PRN Reason: Nausea and Vomiting Polyethylene Glycol (Polyethylene Glycol 3350 17 Gm Powd.Pack) 17 gm PO DAILY PRN PRN Reason: Constipation Sodium Chloride (0.9 % Sodium Chloride Flush 3 Ml Syringe) 3 ml IVFLUSH QSHIFT [facility] Last Admin: 05/18/25 00:01 Dose: Not Given Documented By: OMID Non-Admin Reason: Patient Asleep Labs 05/18/25 06:10 05/18/25 06:10 Labs: Laboratory Results - last 24 hr 05/17/25 05/17/25 05/17/25 10:46 15:40 16:50 MCV 91.7 MCH 30.4 MCHC 33.1 RDW 14.5 Plt Count 257 MPV 10.7 Immature Gran % (Auto) 0.3 Neut % (Auto) 61.6 Lymph % (Auto) 22.6 Mineral % (Auto) 8.2 Eos % (Auto) 5.5 H Baso % (Auto) 1.8 Lymph # (Auto) 1.7 Mineral # (Auto) 0.6 Eos # (Auto) 0.4 Baso # (Auto) 0.1 Abs Immat Gran (auto) 0.02 Absolute Neuts (auto) 4.5 Absolute Nucleated RBC 0.000 Nucleated RBC % (auto) 0.0 Anion Gap 9 L Estim Creat Clear Calc 77.9 Estimated GFR > 60 Random Glucose 83 Calcium 8.8 Magnesium 1.9 Total Bilirubin 0.5 AST 16 ALT 17 Alkaline Phosphatase 58 Troponin I High Sens < 2.7 < 2.7 NT-Pro-B Natriuret Pep 151.2 Total Protein 6.9 Albumin 4.2 TSH 1.44 Beta HCG, Quant < 2 05/18/25 06:10 MCV 90.7 MCH 30.1 MCHC 33.2 RDW 14.2 Plt Count 273 MPV 10.8 Immature Gran % (Auto) 0.2 Neut % (Auto) 57.9 Lymph % (Auto) 25.3 Mineral % (Auto) 9.3 Eos % (Auto) 5.8 H Baso % (Auto) 1.5 Lymph # (Auto) 2.1 Mineral # (Auto) 0.8 Eos # (Auto) 0.5 H Baso # (Auto) 0.1 Abs Immat Gran (auto) 0.02 Absolute Neuts (auto) 4.7 Absolute Nucleated RBC 0.000 Nucleated RBC % (auto) 0.0 Anion Gap 11 L Estim Creat Clear Calc 87.6 Estimated GFR > 60 Random Glucose 88 Calcium 9.0 Magnesium 2.1 Total Bilirubin 0.4 AST 15 ALT 16 Alkaline Phosphatase 59 Troponin I High Sens NT-Pro-B Natriuret Pep Total Protein 7.0 Albumin 4.3 TSH Beta HCG, Quant Assessment and Plan (1) Hypertensive emergency: Status: Acute Assessment and Plan: Patient is a 44-year-old possible perimenopausal female, a [employer] Employee who presented with significantly elevated blood pressure with neurological symptoms- headache and numbness. Awaiting TTE Medically optimized-might be discharged today Newly diagnosed Hypertensive emergency Possibly untreated hypotension secondary to severe stress at work Patient responded well to amlodipine and losartan which we will continue TTE ? Undiagnosed cardiomyopathy ? Hypotensive cardiomyopathy Trop negative, EKG unremarkable, we will check for pheochromocytoma - serum metanephrines -pending Check U tox BAL , denies smoking Low-sodium diet Migraine headache-uses Excedrin and we have switched that with formulary Excedrin. Possibly she has complicated migraine which could also be exacerbating her hypotension Stress - patient agreeable to starting Atarax and sertraline low-dose Sleep disturbances - Melatonin prn Full code DVT prophylaxis with Lovenox while inpatient My discharged today after echo This note is constructed using voice recognition software. While every effort has been made to ensure accuracy, consulting actuary errors may have been included. Quality Stroke Does the patient have a stroke diagnosis?: No VTE Prior VTE?: No VTE Risk Level:: Medical - moderate - high VTE Device Contraindication: N/A - Device Ordered VTE Drug Contraindication: N/A - Med Ordered
[2025-05-18 08:41] LABS: Cannabinoid Screen Urine Not Detected (Not Detect)
--- NOTE | 2025-05-18 09:32 | MHC.CM.PN ---
Pt. is independent, she does not use home health services or DME. She goes to [facility], and will be assigned a new PCP at the [facility]. She can arrange a ride home at [place]. DCP: home, self care, CM to follow for DC needs.
[2025-05-18 11:09] VITALS: BP 144/77; PULSE 73; RESP 18; TEMP 36.4; O2SAT 96
[2025-05-18] MEDS: Butalb/Acetamin/Caff 50/325/40 TABLET 1 TAB PO (11:59)
--- NOTE | 2025-05-18 15:30 | PM.DS ---
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 In the past a year ago, she was told that she does have some hypertension, but 2 weeks ago when she checked she stated that her blood pressure was in the 120s and never had any issues. Patient also wonders if she is perimenopausal and has not noticed any other issues. She reports she only takes a herbal supplement-Ashwagandha for stress and did notice her blood pressure going up during stressful times. She also states that she does have issues sleeping at night and she wakes up in the morning. But otherwise denies any other medical conditions. She took lisinopril from her father 80 mg yesterday and it did not help. And she decided to seek care. Stroke workup-head CT, head CTA and neck negative Patient neurologically intact no issues In the ED, she received amlodipine 2.5 mg, 1 mg Ativan, morphine 4 mg IVP once, ondansetron. ED was concern had to put her out with IV medications and send her home and hence she is being discharged for hypertensive emergency Hospital course: Patient is a 44-year-old possible perimenopausal female, a [employer] [facility] [employer] who presented with significantly elevated blood pressure with neurological symptoms-headache and numbness. TTE was essentially unremarkable.Medically optimized-might be discharged today Newly diagnosed Hypertensive emergency Possibly untreated hypotension secondary to severe stress at work Patient responded well to amlodipine and losartan which she is now prescribed TTE-normal biventricular function without any regional wall motion abnormalities Trop negative, EKG unremarkable, U tox, BAL we will check for pheochromocytoma - serum metanephrines -pending (patient to follow-up with her PCP with the results) Low-sodium diet reinforced Possible complicated migraine Migraine headache-uses Excedrin and we have switched that with formulary Excedrin. Possibly she has complicated migraine which could also be exacerbating her hypotension Stress - patient agreeable to starting Atarax and sertraline [id number] with PCP in outpatient setting Sleep disturbances - Melatonin prn Full code DVT prophylaxis with Lovenox while inpatient This note is constructed using voice recognition software. While every effort has been made to ensure accuracy, letter stamping machine operator errors may have been included. Time spent discussing smoking cessation with patient: more than 10 minutes Status at Discharge Functional status at discharge: independent ambulation Overall status at discharge: patient is back to baseline Time Attestation Discharge Coordination Time (in mins): 55 Quality: Safe Use of Opioids Does Pt have an Active Cancer Diagnosis on the Problem List?: No Quality: Stroke Does the patient have a stroke diagnosis?: No Physical Exam Exam: Exam: General: AOx3, no acute distress, complained of frontal headache Resp: CTA bilaterally CVS: S1, S2, RRR GI: +BS, NT, no distention Skin: Warm, dry Neuro: Cranial nerves II-XII grossly intact bilaterally. Motor grossly intact bilaterally Psych: Appropriate affect Vital Signs: Vital Signs: Last Vital Signs Temp 97.6 F 05/18/25 11:09 Pulse 73 05/18/25 11:09 Resp 18 05/18/25 11:09 BP 144/77 H 05/18/25 11:09 Pulse Ox 96 05/18/25 11:09 O2 Del Method Room Air 05/18/25 11:09 BMI result Body Mass Index 26.8 DS: Data Data Completed and Pending Labs on day of discharge: Laboratory Results - last 24 hr 05/17/25 05/17/25 05/18/25 15:40 16:50 06:10 WBC 8.1 RBC 4.75 Hgb 14.3 Hct 43.1 MCV 90.7 MCH 30.1 MCHC 33.2 RDW 14.2 Plt Count 273 MPV 10.8 Immature Gran % (Auto) 0.2 Neut % (Auto) 57.9 Lymph % (Auto) 25.3 Williams % (Auto) 9.3 Eos % (Auto) 5.8 H Baso % (Auto) 1.5 Lymph # (Auto) 2.1 Williams # (Auto) 0.8 Eos # (Auto) 0.5 H Baso # (Auto) 0.1 Abs Immat Gran (auto) 0.02 Absolute Neuts (auto) 4.7 Absolute Nucleated RBC 0.000 Nucleated RBC % (auto) 0.0 Sodium 139 Potassium 3.8 Chloride 106 Carbon Dioxide 26 Anion Gap 11 L BUN 12 Creatinine 0.89 Estim Creat Clear Calc 87.6 Estimated GFR > 60 Random Glucose 88 Calcium 9.0 Magnesium 2.1 Total Bilirubin 0.4 AST 15 ALT 16 Alkaline Phosphatase 59 Troponin I High Sens < 2.7 NT-Pro-B Natriuret Pep 151.2 Total Protein 7.0 Albumin 4.3 Urine Opiates Screen Ur Buprenorphine Scrn Ur Oxycodone Screen Urine Methadone Screen Urine Fentanyl Screen Ur Barbiturates Screen Ur Phencyclidine Scrn Ur Amphetamines Screen U Benzodiazepines Scrn Urine Cocaine Screen U Marijuana (THC) Screen 05/18/25 08:02 WBC RBC Hgb Hct MCV MCH MCHC RDW Plt Count MPV Immature Gran % (Auto) Neut % (Auto) Lymph % (Auto) Williams % (Auto) Eos % (Auto) Baso % (Auto) Lymph # (Auto) Williams # (Auto) Eos # (Auto) Baso # (Auto) Abs Immat Gran (auto) Absolute Neuts (auto) Absolute Nucleated RBC Nucleated RBC % (auto) Sodium Potassium Chloride Carbon Dioxide Anion Gap BUN Creatinine Estim Creat Clear Calc Estimated GFR Random Glucose Calcium Magnesium Total Bilirubin AST ALT Alkaline Phosphatase Troponin I High Sens NT-Pro-B Natriuret Pep Total Protein Albumin Urine Opiates Screen POSITIVE H Ur Buprenorphine Scrn Not Detected Ur Oxycodone Screen Not Detected Urine Methadone Screen Not Detected Urine Fentanyl Screen Not Detected Ur Barbiturates Screen Not Detected Ur Phencyclidine Scrn Not Detected Ur Amphetamines Screen Not Detected U Benzodiazepines Scrn Not Detected Urine Cocaine Screen Not Detected U Marijuana (THC) Screen Not Detected Discharge Plan Discharge Anticipated Discharge Date/Time: 05/18/25 15:05 Patient Disposition: Home, Self-Care Discharge Diagnosis: New onset primary hypertension, severe stress, insomnia Referrals: Group,[facility] [Primary Care Provider, Primary Care] - 1 Week Discharge Medications: New amlodipine 10 mg Tablet 10 mg PO DAILY 30 Days Qty: 30 3RF Protocol: Hold for SBP< HOLD for SBP < : 90 losartan 50 mg Tablet 50 mg PO DAILY 30 Days Qty: 30 3RF Protocol: Hold for SBP< HOLD for SBP < : 90 hydroxyzine HCl 25 mg Tablet 25 mg PO Q8H PRN (Reason: Anxiety) 30 Days Qty: 30 3RF sertraline 25 mg Tablet 25 mg PO DAILY 30 Days Qty: 30 3RF sumatriptan succinate 25 mg Tablet 25 mg PO DAILY PRN (Reason: Migraine Headache) 30 Days Qty: 30 3RF melatonin 3 mg Tablet 6 mg PO BEDTIME PRN (Reason: Insomnia) 30 Days Qty: 30 3RF Continued [id number] [Excedrin Migraine] 250-250-65 mg Tablet 1 tab PO Q4H PRN (Reason: Migraine Headache) omega 5-vch-kmz-fish oil [Fish Oil] 1,000 (120-180) mg Capsule 1 cap PO DAILY Discontinued ashwagandha extract 500 mg Capsule 500 mg PO DAILY Discharge Orders: Discharge Order (Routine); Ordered 05/18/25 Ordered By: Enid Mccrary Diet: Low salt diet Activity on Discharge: As tolerated Stand Alone Forms: Patient Portal Discharge page Print Language: Upper Sorbian Activity Restrictions/Additional Instructions: Your electrocardiogram, electrolytes and kidney function, your blood cell counts are all normal Your CT scan which included the vasculature of the head of the neck shows no signs of acute pathology your vessels are patent CT/CT angio head neck IMPRESSION: NON-CONTRAST HEAD CT: 1. No intracranial hemorrhage or mass effect. No CT evidence of acute territorial infarct. CTA NECK: 1. No evidence of significant stenosis, occlusion, dissection, or aneurysm of the major cervical arterial vasculature. CTA HEAD: 1. No evidence of significant stenosis, occlusion, dissection, or aneurysm of the major intracranial arterial vasculature. 2. Major cortical and dural venous sinuses are patent. ### Hypertension Discharge Instructions You have been diagnosed with high blood pressure (hypertension) and are starting two new medicines: amlodipine and losartan. These instructions will help you use your medicines safely and manage your blood pressure at home. 1. How to take your medicines - Take amlodipine and losartan exactly as prescribed, once daily, at the same time each day. You can take them with or without food. - If you miss a dose, take it as soon as you remember. If it is almost time for your next dose, skip the missed dose?do not double up.[1][2] - Do not stop taking your medicines without talking to your doctor, even if you feel well. High blood pressure often has no symptoms. 2. What to expect and possible side effects - Amlodipine may cause swelling in your legs or ankles, dizziness, flushing (warmth or redness in your face), tiredness, or palpitations (feeling your heart race). These are usually mild but let your doctor know if they bother you or do not go away.[3][1] - Losartan may cause dizziness, fatigue, low blood pressure, or, rarely, high potassium levels. Tell your doctor if you feel faint, have muscle weakness, or notice an irregular heartbeat.[2] - Serious allergic reactions (such as swelling of the face, lips, or tongue) are rare but require immediate medical attention.[2] 3. Drug interactions and precautions - Do not use potassium supplements or salt substitutes containing potassium unless your doctor says it is okay, as losartan can increase potassium levels.[2] - Avoid taking nonsteroidal anti-inflammatory drugs (NSAIDs) like ibuprofen or naproxen regularly, as they can reduce the effectiveness of your blood pressure medicines and may harm your kidneys.[4][2] - Always check with your doctor or pharmacist before starting any new medicines, vitamins, or herbal supplements. 4. Monitoring your blood pressure - Check your blood pressure at home as instructed. Keep a log of your readings and bring it to your follow-up appointments.[4][5] - Use a validated home blood pressure monitor (see validatebp.org for recommended devices). - Call your doctor if your blood pressure is consistently above the goal set for you or if you have symptoms like severe headache, chest pain, or shortness of breath. 5. Lifestyle changes to help control blood pressure - Eat a heart-healthy diet (such as the DASH diet), reduce salt intake, and increase fruits and vegetables. - Maintain a healthy weight, exercise regularly (as approved by your doctor), and limit alcohol. - Do not smoke. If you need help quitting, ask for resources. - Manage stress with relaxation techniques or counseling if needed.[4] 6. Follow-up and when to call your doctor - Keep all follow-up appointments to check your blood pressure and review your medicines. - Call your doctor if you have swelling that does not go away, severe dizziness, fainting, muscle weakness, irregular heartbeat, or signs of an allergic reaction (swelling of face/lips/tongue, trouble breathing). - If you become or plan to become , notify your doctor immediately, as losartan should not be used during .[2] Remember: Taking your medicines every day and making healthy lifestyle choices are the best ways to protect your heart and prevent complications from high blood pressure. If you have any questions or concerns, contact your healthcare team. Care Plan Goals: Please start taking amlodipine and losartan Please start taking Atarax and sertraline Stop taking a herbal supplement as this might impact or interact with your medications Please follow up with psychotherapy along with pharmacotherapy for stress reduction Please take melatonin for adequate sleep Please follow up with PCP within a week to titrate medications Please take sumatriptan as needed or Excedrin daily for migraine headache Health Concerns: See above Plan of Treatment: See above Assessment: See above
[2025-05-18 16:00] VITALS: BP 152/85; PULSE 86; RESP 16; TEMP 37; O2SAT 95
[2025-05-20 14:49] LABS: Alcohol, Ethyl Urine Screen NEGATIVE
[2025-05-22 15:49] LABS: Metanephrine, Free <25 pg/mL (<=57); Normetanephrines, Free 66 pg/mL (<=148); Total Metanephrine, Free 66 pg/mL (<=205)
== END 2025-05-18 16:26 | disposition home or self-care (01) | DRG 199 ==
LOC: HO.ED 15:12 → HO.EDOVER 15:28 → HO.IMC 05-18 00:19
PROVIDERS: Registered Nurse Emergency; Admitting Provider Student in an Organized Health Care Education/Training Program; Emergency Provider Emergency Medicine; Visit Provider Student in an Organized Health Care Education/Training Program
DX: I16.1 Hypertensive emergency (principal); F43.9 Reaction to severe stress, unspecified; G47.9 Sleep disorder, unspecified; G43.909 Migraine, unspecified, not intractable, without status migrainosus; I10 Essential (primary) hypertension; Z79.899 Other long term (current) drug therapy
CPT/HCPCS: 36415; 70496; 70498; 71046; 80053; 80307; 83735; 83835; 83880; 84443; 84484; 84702; 85025; 93005; 93306; 97161; 99222; 99285; J2270; J2405; J3360; J7120; Q9957; Q9967

== ENCOUNTER → 2025-05-17 10:32 | Outpatient (BNV) | payer OTHER, SELFPAY | PROVIDERS: Admitting Provider Student in an Organized Health Care Education/Training Program; Emergency Provider Emergency Medicine; Visit Provider Internal Medicine Cardiovascular Disease | DX: R07.89 Other chest pain (principal); R20.2 Paresthesia of skin | CPT/HCPCS: 93010 ==

== ENCOUNTER → 2025-05-17 10:33 | Outpatient (BNV) | payer OTHER, SELFPAY | PROVIDERS: Emergency Provider Emergency Medicine; Visit Provider Radiology Diagnostic Radiology | DX: R51.9 Headache, unspecified (principal); M54.2 Cervicalgia; R20.0 Anesthesia of skin; R07.89 Other chest pain | CPT/HCPCS: 70496; 70498; 71046 ==

== ENCOUNTER 2025-05-17 15:16 | Outpatient (BNV) | payer OTHER, SELFPAY | END 2025-05-18 07:00 | PROVIDERS: Admitting Provider Student in an Organized Health Care Education/Training Program; Emergency Provider Emergency Medicine; Visit Provider Internal Medicine Cardiovascular Disease | DX: R93.1 Abnormal findings on diagnostic imaging of heart and coronary circulation (principal) | CPT/HCPCS: 93306 ==

== ENCOUNTER → 2025-05-17 15:16 | Outpatient (BNV) | payer OTHER, SELFPAY | PROVIDERS: Admitting Provider Student in an Organized Health Care Education/Training Program; Emergency Provider Emergency Medicine; Visit Provider Student in an Organized Health Care Education/Training Program | DX: I16.1 Hypertensive emergency (principal) | CPT/HCPCS: 99223 ==